=== PATIENT | male | born 1960 | race Caucasian/White ===

== ENCOUNTER → 2016-10-22 | Outpatient (CLI) | payer OTHER ==
[~2016-10-22] MED LIST: TYLENOL REGULA325 MG PO; Zetia PO; celeBREX PO
== END | disposition home or self-care (01) ==
LOC: CDC 11:29
DX: I45.10 Unspecified right bundle-branch block (principal); E66.01 Morbid (severe) obesity due to excess calories
CPT/HCPCS: 93000

== ENCOUNTER 2017-01-21 05:25 | Inpatient (IN) | payer OTHER ==
[~2017-01-21] VITALS: Ht 177.8 cm; Wt 130.1 kg
[~2017-01-21 05:25] MED LIST changes: +ASPIR 8181 M1 PO; +CENTRUM MEN'S1 EACH PO; +CIALIS10 MG PO; +FENOFIBRATE160 M1 PO; +GLIMEPIRIDE1 MG PO; +JANUVIA100 MG PO; +LOVAZA1 GM PO; +METFORMIN HCL1000 MG PO; +PRINIVIL20 MG PO; +TRAMADOL HCL50 MG PO
[2017-01-21 06:04] VITALS: BP 131/76
[2017-01-21 06:57] LABS: POINT-OF-CARE METER ID UU14174212
[2017-01-21 08:52] LABS: POINT-OF-CARE METER ID UU13113675
[2017-01-21 12:14] LABS: POINT-OF-CARE METER ID UU13113675; POINT-OF-CARE USER ID 515036437
[2017-01-21 15:15] VITALS: BP 153/88
[2017-01-21 20:10] VITALS: BP 142/74
[2017-01-21 23:04] VITALS: BP 138/82
[2017-01-22 03:14] VITALS: BP 141/70
[2017-01-22 07:24] VITALS: BP 146/81
[2017-01-22] MEDS ORDERED: HYDROCODON-ACE1 EAC7 PO (08:12)
[2017-01-22 09:26] LABS: HEMATOCRIT 40.7 % (38.0-50.0); MCH 30.8 PG (29.0-34.0); MCHC 34.2 G/DL (30.0-36.0); MCV 90.2 FL (86-99); MEAN PLAT.VOLUME 9.4 uM^3 (9.0-12.4); PLATELET COUNT 182 K/uL (156-360); RBC DIS.WIDTH-CV 12.3 % (11.8-14.6); RBC DIS.WIDTH-SD 40.9 % (39-53); RED BLOOD COUNT 4.51 M/uL (4.00-5.50)
[2017-01-22 09:29] LABS: WHITE BLOOD COUNT 7.5 K/uL (4.1-10.2)
[2017-01-22 09:55] LABS: ANION GAP 9 MEQ/L (2-14); CHLORIDE 100 MEQ/L (99-109); GFR ESTIMATE (CALCULATED) > 59 mL/min/; GLUCOSE 181 mg/dL (70-99); MAGNESIUM 1.2 mg/dl (1.3-2.7); POTASSIUM 4.5 MEQ/L (3.7-5.4); SAMPLE HEMOLYSIS CHECK 0; SAMPLE ICTERIC CHECK 0; SAMPLE LIPEMIA CHECK 0; SODIUM 135 MEQ/L (136-147); UREA NITROGEN (BUN) 13 mg/dL (9-23)
== END 2017-01-22 12:08 | disposition home or self-care (01) | DRG 621 ==
LOC: 2SOUTH 05:25 → 2EASTP 15:08 → 2SOUTH 15:09 → 2EASTP 01-22 12:08
PROVIDERS: Surgery
PROC: 0T9B70Z Drainage of Bladder with Drainage Device, Via Natural or Artificial Opening (ICD-10-PCS; principal; 2017-01-21)
PROC: 0DB64Z3 Excision of Stomach, Percutaneous Endoscopic Approach, Vertical (ICD-10-PCS; principal; 2017-01-21)
DX: E66.01 Morbid (severe) obesity due to excess calories (principal); Z68.41 Body mass index [BMI] 40.0-44.9, adult; Z96.643 Presence of artificial hip joint, bilateral; E78.1 Pure hyperglyceridemia; I10 Essential (primary) hypertension; G47.33 Obstructive sleep apnea (adult) (pediatric); E78.5 Hyperlipidemia, unspecified; R33.9 Retention of urine, unspecified; M19.90 Unspecified osteoarthritis, unspecified site; E11.9 Type 2 diabetes mellitus without complications
CPT/HCPCS: 80048; 82948; 83735; 84100; 85027; C9113; J0131; J0330; J0360; J0690; J1170; J1644; J1650; J1815; J2270; J2405; J2710; J3010; J3480; J7120; S0020